=== PATIENT | female | born 1985 | race Hispanic/Latino ===

== ENCOUNTER 2025-08-02 10:07 | Emergency (ER) | payer OTHER ==
[~2025-08-02] VITALS: Ht 160 cm; Wt 115.7 kg
[2025-08-02] MEDS: 0.9%NACL 1000ML 1,000 ML IV ONE (10:55)
[2025-08-02 11:01] LABS: IMMATURE GRANULOCYTE ABSOLUTE 0.07 K/uL (0-1); NUCLEATED RED BLOOD CELLS 0.0 % (0.0-0.19); PLATELET COUNT (AUTO) 341 K/uL (130-400); RED BLOOD CELL COUNT(AUTO) 3.53 MIL/uL (4.00-5.50); RED CELL DISTRIBUTION WIDTH 20.8 % (11.0-15.5); WHITE BLOOD COUNT (AUTO) 9.6 K/uL (4.8-10.8)
[2025-08-02 11:04] LABS: CREATININE 0.5 mg/dL (0.5-1.0); GLOMERULAR FILTR. RATE CALC 121.0 mL/min (>90); GLUCOSE,RANDOM 292.0 mg/dL (70-105); SODIUM SERUM 136.0 mmol/L (136-145); UREA NITROGEN, BLOOD 17.0 mg/dL (7-18)
[2025-08-02 11:08] LABS: ASPARTATE AMINOTRANSFERASE 6.0 U/L (10-37); TOTAL PROTEIN, SERUM 6.1 g/dL (6.0-8.3)
--- NOTE | 2025-08-02 11:50 | NUR ---
TRANSFER REQUEST FOR [employer], BY DR DUARTE. ALAN BLEDSOE
--- NOTE | 2025-08-02 12:11 | ERN ---
ED Note History of Present Illness Stated Complaint: VAGINAL BLEEDING Chief Complaint: Vaginal Problems/Bleeding Time Seen by MD: 10:18 Dictation: 39-year-old female presenting to the emergency department on and off vaginal bleeding patient reports this has been going on for the past nine months but has not seen anybody in clinic was recently seen and admitted in the [facility] for the same thing last week however it returned today. Patient feels weak. Allergies: Coded Allergies: Penicillins (Unverified Allergy, Unknown, 08/02/25) Past Medical History Past Medical History: Anemia, Diabetes-Type II Surgical History: Other Surgical History Other: ABDOMINAL SURGERY Review of System Dictation Constitutional: Negative for fever,chills, and weight loss Eyes: Negative for injury, pain,redness, and discharge ENT: Negative for injury,pain or swelling Cardiovascular: Negative for chest pain, palpitations, and edema Respiratory: Negative for shortness of breath, cough, and wheezing, Abdomen/GI: Negative for abdominal pain, nausea, vomiting, diarrhea, and constipation Back: Negative for injury and pain : Per HPI MS/Extremity: Negative for injury and deformity Skin: Negative for rash, and discoloration Neuro: Per HPI Initial Vital Sign VS Vital Signs Date Time Temp Pulse Resp B/P (MAP) Pulse Ox O2 Delivery O2 Flow Rate FiO2 08/02/25 10:09 97.9 97 16 115/64 100 Room Air 08/02/25 10:56 0 21 Physical Exam Dictation General: awake, alert, appears weak and pale Head/Face: Normocephalic, atraumatic Eyes: PERRL, EOMI, vision at baseline ENT: oral cavity clear, TMs clear, no signs of infection Neck: Trachea midline, supple, no nuchal rigidity Cardiovascular: RRR, normal S1/S2, No MRGs, no JVD Respiratory: CTAB, no respiratory distress, No rales or wheezes Abdomen: Soft, non-tender, non-distended, normal bowel sounds, no guarding or rebound. Skin: Warm, dry, normal turgor, no rash MS/Extremity: Pulses equal, no cyanosis, neurovascular intact, FROM Neuro: COAx4, GCS 15, strength 5/5, CN 2-12 intact, normal cerebellar exam, normal gait, Psych: Normal behavior, mood, and affect normal Results (Laboratory/Radiology) Laboratory/Radiology Laboratory Tests Test 08/02/25 10:34 White Blood Count 9.6 K/uL (4.8-10.8) Red Blood Count 3.53 MIL/uL (4.00-5.50) L Hemoglobin 6.8 g/dL (12.0-16.0) *L Hematocrit 23.3 % (36-48) L Mean Corpuscular Volume 66.0 fL (79-99) L Mean Corpuscular Hemoglobin 19.3 pg (27.0-33.0) L Mean Corpuscular Hemoglobin Concent 29.2 g/dL (32.0-36.0) L Red Cell Distribution Width 20.8 % (11.0-15.5) H Platelet Count 341 K/uL (130-400) Mean Platelet Volume 10.1 fL (7.5-10.5) Immature Granulocyte % (Auto) 0.7 % (0-1) Neutrophils (%) (Auto) 74.2 % (40.0-77.0) Lymphocytes (%) (Auto) 18.4 % (21.0-51.0) L Monocytes (%) (Auto) 5.4 % (3.0-13.0) Eosinophils (%) (Auto) 0.9 % (0.0-8.0) Basophils (%) (Auto) 0.4 % (0.0-5.0) Neutrophils # (Auto) 7.2 K/uL (1.8-7.7) Lymphocytes # (Auto) 1.8 K/uL (1.0-4.8) Monocytes # (Auto) 0.5 K/uL (0.1-1.0) Eosinophils # (Auto) 0.09 K/uL (0.00-0.70) Basophils # (Auto) 0.04 K/uL (0.00-0.20) Absolute Immature Granulocyte (auto 0.07 K/uL (0-1) Nucleated Red Blood Cells 0.0 % (0.0-0.19) Red Blood Cell Morphology See comments Sodium Level 136 mmol/L (136-145) Potassium Level 4.3 mmol/L (3.5-5.1) Chloride Level 104 mmol/L (101-111) Carbon Dioxide Level 24 mmol/L (21-32) Blood Urea Nitrogen 17 mg/dL (7-18) Creatinine 0.5 mg/dL (0.5-1.0) Glomerular Filtration Rate Calc 121 mL/min (>90) Random Glucose 292 mg/dL (70-105) H Total Calcium 7.8 mg/dL (8.5-10.1) L Total Bilirubin 0.3 mg/dL (0.2-1.0) Direct Bilirubin 0.1 mg/dL (0.0-0.3) Aspartate Amino Transf (AST/SGOT) 6 U/L (10-37) L Alanine Aminotransferase (ALT/SGPT) 12 U/L (12-78) Alkaline Phosphatase 102 U/L (50-136) Total Protein 6.1 g/dL (6.0-8.3) Albumin 2.6 g/dL (3.5-5.0) L Labs Reviewed?: Yes ED Course ED Course Orders Procedure Category Date Status Time Type And Screen BBK 08/02/25 Complete 10:18 Basic Metabolic Panel LAB 08/02/25 Complete 10:18 Cbc With Differential LAB 08/02/25 Complete 10:18 Hepatic Function Panel LAB 08/02/25 Complete 10:18 Urinalysis Profile LAB 08/02/25 Logged 10:18 ,Urine Test LAB 08/02/25 Logged 10:18 0.9%Nacl 1000ml (Ns PHA 08/02/25 Complete 1000ml) 10:30 Us Pelvic Non-Ob Comp US 08/02/25 Resulted 10:42 Rbc-No Active Bleeding BBK 08/02/25 Complete 11:05 Current Medications Medications (Trade) Dose Ordered Sig/Eduardo Route PRN Reason Start Time Stop Time Status Last Admin Dose Admin Sodium Chloride 1,000 ml @ 0 mls/hr ONCE ONCE IV 08/02/25 10:30 08/02/25 10:31 DC 08/02/25 10:55 Vital Signs Date Time Temp Pulse Resp B/P (MAP) Pulse Ox O2 Delivery O2 Flow Rate FiO2 08/02/25 13:05 98.1 82 14 142/58 95 Room Air* 0 21 08/02/25 10:56 98.2 90 17 105/54 97 Room Air* 0 21 08/02/25 10:09 97.9 97 16 115/64 100 Room Air Medical Decision Making MDM MDM: Differential diagnosis: Rationale: Tests considered and ordered secondary to shared decision making include: labs, ECG and radiology Previous outside records reviewed: Old ER visits. Risk of complication and/or morbidity or mortality of patient management: None Medications-Per medication reconciliation Need for hospitalization: Patient does meet criteria for hospitalization. Need for emergency major/minor surgery: No There are no social concerns with this patient. Prescription drug management Prescriptions will include symptomatic care Patient's prior external medical records from other ER visits were reviewed by me as indicated. Prior testing and results from previous visits were reviewed. Prior tests were taken into account with medical decision making and resource utilization, independent historian/historians were used to obtain complete medical history. I independently interpreted the test that were performed, results were reviewed by me and considered findings on radiology if ordered. Medical management and examination interpretation discussions were had by me with other qualified healthcare professionals as indicated for the patient's care. 39-year-old female with this menorrhagia, severe anemia hemoglobin of 6.8, hemodynamically stable transfusing PRBC and we will look for transfer to hospital that has gynecology on-call for evaluation. DX & DISP Disposition: Transfer Departure Impression: Primary Impression: Severe anemia Additional Impression: Vaginal bleeding Condition: Stable AUDREY DUARTE MD Aug 02, 2025 12:11
--- NOTE | 2025-08-02 12:19 | NUR ---
TRANSFER MET WITH PT AND SPOUSE INFORM OF TRANSFER PROCESS STATES HER GNY DOCTOR IS FROM [facility] BY THE NAME EVELIN PORRAS HOPING SHE CAN BE TRANSFER WHERE EVER SHE HAS PRIVILEGES, INFORM WILL TRY STORM VERBALIZED UNDERSTANDING, CONSENT FOR TRANSFER SIGNED , ALAN BLEDSOE
--- NOTE | 2025-08-02 12:36 | NUR ---
IMAGING CD MADE FOR TRANSFER.
--- NOTE | 2025-08-02 12:45 | HMCIMG ---
EXAM: US Pelvis, Complete Transvaginal and Transabdominal COMPARISON: None provided. CLINICAL HISTORY: Vaginal bleeding TECHNIQUE: Transvaginal and transabdominal pelvic ultrasound (complete) with image documentation. FINDINGS: ENDOMETRIUM: Ill-defined and irregular in morphology. Measures 2.6 cm. UTERUS/CERVIX: Measures 13 x 6.3 x 8.9 cm. RIGHT OVARY: Measures 2.3 x 2.2 x 2.6 cm normal in size. Normal Doppler flow. No abnormal mass. LEFT OVARY: Measures 3.1 x 2.5 x 3 cm normal in size. Normal Doppler flow. No abnormal mass. CUL-DE-SAC : No free fluid. IMPRESSION: Ill-defined and irregular endometrium. Contrast-enhanced MRI of the pelvis is recommended for further evaluation. /[place]
--- NOTE | 2025-08-02 12:50 | NUR ---
TRANSFER, CALL PLACE TO [facility] SPOKE WITH MARISELA HS INFORMATION PROVIDED. HS PROVIDED DR BELCHER PHONE NUMBER [phone] FOR [facility] DOCTOR TO GIVE DR TAYLOR A CALL TO PRESENT CASE. ALAN BLEDSOE
--- NOTE | 2025-08-02 13:08 | NUR ---
TRANSFER , CALL PLACE TO [employer] TO INFORM OF ACCEPTANCE BY DR TAYLOR TO SHE WILL CALL BACK ONCE SHE OBTAINS ADMIN APPROVAL AND BED. ALAN BLEDSOE
--- NOTE | 2025-08-02 13:19 | NUR ---
TRANSFER CALL BACK WITH ACCEPTANCE UNDER DR TAYLOR WHICH REQUESTED TO TRANSFER AFTER BLOOD TRANSFUSION IN COMPLETED, TO ROOM 319 AND PRIMARY NURSE TO CALL REPORT TO [phone] AND EMS WHEN READY. ALAN BLEDSOE
--- NOTE | 2025-08-02 13:39 | PN ---
Date of service: 08/02/2025 Requesting physician: Dr. Breen, This is a brief note, 39 Year old female with underlying history of obesity, type 2 diabetes mellitus, who presented to the ER with symptoms of presyncope, and vaginal bleeding. Patient reports that she has been having issues with intermittent heavy menstrual bleeding ongoing for the past nine months. Over the last 1-2 weeks, bleeding has worsened where she has to change pads four to 5 times a day and has been having significant menorrhagia. She has been passing small to mid size blood clots as well almost everyday. She was feeling dizzy today and felt like she might faint prompting her to come to the ER for further evaluation today. She was previously hospitalized in [facility] on 07/29/2025 where she needed to be given given a unit of blood for severe blood loss anemia. She has been feeling dizzy especially with getting up and ambulating today. She reports having history of type 2 diabetes mellitus and has been maintained on treatment with outpatient insulin. She has been having issues with irregular periods since her childhood. She is unsure of the cause of the heavy menorrhagia. On presentation to ER today, patient was noted to be afebrile with T-max of 97.9 F, heart rate of 97, blood pressure of 115/64. Labs showed significant iron-deficiency anemia with hemoglobin of 6.8, MCV of 66. There is orders for patient to receive a unit of blood currently. I was asked by ER provider for evaluation for patient to be admitted. [facility] [place]necology support. Patient is having with significant menorrhagia needing blood transfusion support and symptoms of dizziness and orthostasis. This patient needs gynecologic evaluation. I spoke with ER provider that patient should be transferred to the nearest facility with gynecologic support. Results of pelvic ultrasound are also pending. Patient will benefit from iron supplementation either as oral or IV once she is admitted to facility with gynecology consultation available. Plan of care was discussed with patient at bedside and updated ER provider as well. Date of service: 08/02/2025 Reddy Alatorre MD Vitals/Labs Vital Signs Date Time Temp Pulse Resp B/P (MAP) Pulse Ox O2 Delivery O2 Flow Rate FiO2 08/02/25 13:05 98.1 82 14 142/58 95 Room Air* 0 21 Laboratory Tests 08/02/25 10:34 Medications Current Medications Sodium Chloride 1,000 ml @ 0 mls/hr ONCE ONCE IV Last administered on 08/02/25at 10:55; Start 08/02/25 at 10:30; Stop 08/02/25 at 10:31; Status DC REDDY ALATORRE MD Aug 02, 2025 13:39
--- NOTE | 2025-08-02 16:10 | NUR ---
CALLED AND GAVE REPORT TO TACO BLEDSOE [facility], AND I CALLED [facility] AND SPOKE TO AMELIE TO SET UP TRANSPORT, PATIENT RESTING IN BED, CALL LIGHT IN REACH
--- NOTE | 2025-08-02 17:48 | NUR ---
EMS ARRIVED FOR PATIENT
[2025-08-02 17:49] VITALS: BP 128/65; PULSE 80; RESP 19; TEMP 98.5; O2SAT 100
== END 2025-08-02 17:48 | disposition short-term general hospital (02) ==
LOC: EDH 10:07
DX: D64.9 Anemia, unspecified (principal); N93.9 Abnormal uterine and vaginal bleeding, unspecified; E11.9 Type 2 diabetes mellitus without complications; Z88.0 Allergy status to penicillin
CPT/HCPCS: 99285; 36430; 96360; 76856; 96361; 80076; 80048; 85025; 86850; 86900; 86901; 86923; 36415; P9016; J7030